=== PATIENT | male | born 1950 | race Caucasian/White ===

== ENCOUNTER → 2016-07-07 | Day surgery (SDC) | payer OTHER ==
[~2016-07-07] MED LIST: ADVAIR 500-501 EACH IH; ADVAIR 5001 DISK W/2 IH; ALBUTEROL MININEB NEB; ALENDRONATE SOD70 MG PO; ATROVENT 0.03%30 ML; AZITHROMYCIN250 MG PO; BEVESPI AEROS10.7 GM INH; CETIRIZINE HCL10 MG PO; CLARITIN-D1 TAB 12 H PO; FINASTERIDE5 M1 PO; HYDROCHLOROTH12.5 MG PO; LEVAQUIN750 MG PO; MONTELUKAST SOD10 MG PO; OXYGEN; PRINIVIL20 M1 PO; PROAIR HFA8.5 GM IH; PROAIR HFA8.5 GM INH; SPIRIVA18 MCG INH
--- NOTE | ~2016-07-07 | OR ---
Unit #: [id number] #: [id number] Patient: RYAN PALACIO [id number] [place], [place] [address] [id number] MR#: [id number] NAME: RYAN PALACIO ROOM: Date of Procedure: 07/07/2016 Admission Date: 07/07/2016 Surgeon: Luigi Jimenez Jr., M.D. : 1950 Attending Physician: Luigi Jimenez Jr., M.D. Primary Care Physician: Vamsi Abbasi Jr., M.D. OPERATIVE REPORT INDICATIONS FOR PROCEDURE The patient is a 65-year-old white male, who was recently seeing his family physician and noted to have 2 melanotic lesions of the upper back, one on the right and one on the left. The patient states that these dark lesions had been there for probably most all of his life and he has never worried about him, but they have seen to of change recently. The one on the right scapular area is very suspicious for melanoma and approximately 3 to 4 cm in diameter. The one on the left was raised and also was melanotic. He is brought in this time for excision of these under local anesthesia as an outpatient. He understands the procedure including the risks, including that of infection, bleeding, and poor healing and consents. PREOPERATIVE DIAGNOSIS Bilateral melanotic lesions of the upper back, possible melanomas. POSTOPERATIVE DIAGNOSIS Bilateral melanotic lesions of the upper back, possible melanomas. ANESTHESIA 1% Xylocaine with epinephrine locally. PROCEDURE PERFORMED Wide excision of 2 melanotic lesions of the upper back. DESCRIPTION OF PROCEDURE The patient was positioned in a sitting position since he has severe COPD, is on home oxygen and cannot lay flat completely. He was prepped and draped in routine fashion for excision of both lesions under local anesthesia. The smaller lesion on the left was locally anesthetized with 1% Xylocaine with epinephrine. An elliptical incision was made around it with margins over a 1 cm from the closest edge. The margins were marked, one stitch was superior, two stitches were lateral and the specimen was completely removed down to the deeper subcutaneous tissue with a #10 blade scalpel. After it was removed, it was sent to pathology. Hemostasis was achieved with Bovie cautery. Deeper tissue approximated with interrupted 3-0 Vicryl sutures and the skin edges approximated with interrupted 2-0 nylon mattress stitches. Ointment and sterile dressing were applied externally. The lesion on the right shoulder was then locally anesthetized with 1% Xylocaine with epinephrine. An elliptical incision was made around it with it having almost 3/4 to 1-inch margins. This was done with a #10 blade scalpel down to the deeper subcutaneous tissue near Unit #: [id number] #: [id number] Patient: RYAN PALACIO the fascia. After the lesion was completely removed from the surrounding tissue, it was marked, one stitch was superior and 2 stitches were medial. After the lesion was removed, hemostasis achieved with Bovie cautery. The deeper tissue approximated with interrupted 3-0 Vicryl sutures. Skin edges were approximated with interrupted 2-0 nylon and sutures using mattress stitches and stainless steel skin clips. Sterile dressing was applied externally. Estimated blood loss for both procedures minimal, less than 30 mL. There was no fluids given. No drains used. No complications. The patient was discharged in satisfactory condition. Dictated by... Luigi Jimenez Jr. MBryant LENTZ/meron TD: 07/08/2016 07:34 JOB #: [id number] OPERATIVE REPORT X Luigi Jimenez MD X PROCEDURE OPERATIVE NOTE
== END | disposition home or self-care (01) ==
LOC: CSUR 12:59
DX: L98.9 Disorder of the skin and subcutaneous tissue, unspecified (principal); J43.9 Emphysema, unspecified; N40.0 Benign prostatic hyperplasia without lower urinary tract symptoms; F17.210 Nicotine dependence, cigarettes, uncomplicated; Z98.890 Other specified postprocedural states
CPT/HCPCS: 88305